=== PATIENT | female | born 1975 | race Caucasian/White ===

== ENCOUNTER → 2021-06-15 | Day surgery (SDC) | payer OTHER ==
[~2021-06-15] VITALS: Ht 165.1 cm; Wt 75.7 kg
[~2021-06-15] MED LIST: ASPIRIN EC81 MG PO; BREO ELLIPTA 11 EACH INH; BRIN10TA PO; KLOR-CON M 1010 MEQ PO; LIPITOR 10MG TA10 MG PO; NITROQUIK SL0.4 MG SL; PRINIVIL10 MG PO; PROAIR HFA8.5 GM INH; PROTONIX 40MG T40 MG PO; ZYRTEC10 M3 PO
[2021-06-15 06:32] LABS: HCG (URINE) SCREEN NEGATIVE (NEGATIVE)
[2021-06-15 07:05] LABS: HCT 37.6 % (37.0-47.0); HGB 12.3 g/dl (12.5-16.0); MCHC 32.7 g/dL (32.0-36.0); MCV 85.5 fL (78.0-100.0); MPV 10.2 fL (6.0-9.5); RBC 4.4 M/uL (4.20-5.40); WBC 10.7 K/uL (4.0-10.5)
[2021-06-15 07:23] LABS: ALBUMIN 3.3 g/dL (3.4-5.0); BILIRUBIN - TOTAL 0.5 mg/dL (0.2-1.0); BUN/CREAT RATIO (CALC) 9.2 RATIO; CREATININE 0.65 mg/dL (0.51-0.95); GLOBULIN (CALCULATION) 3.5 g/dL; POTASSIUM 3.9 mmol/L (3.5-5.1); TOTAL PROTEIN 6.8 g/dL (6.4-8.2)
== END | disposition home or self-care (01) ==
LOC: FAS 05-31 12:45 → EDBD 06:15 → FAS 06:15
PROVIDERS: Orthopaedic Surgery
DX: M75.111 Incomplete rotator cuff tear or rupture of right shoulder, not specified as traumatic (principal); M19.011 Primary osteoarthritis, right shoulder; M75.41 Impingement syndrome of right shoulder; I25.2 Old myocardial infarction; Z98.51 Tubal ligation status; U07.1 COVID-19
CPT/HCPCS: 36415; 71045; 80053; 84703; 93005; J0171; J0690; J1100; J1885; J2250; J2405; J2704; J2710; J2795; J3010; J7120